=== PATIENT | female | born 1990 | race Caucasian/White ===

== ENCOUNTER → 2016-11-27 | Outpatient (CLI) | payer BC ==
[2016-11-27 16:42] LABS: MEAN CORPUSCULAR HEMOGLOBIN 30.3 PG (26.0-34.0); MEAN PLATELET VOLUME 9.8 FL (6.0-9.5); WHITE BLOOD COUNT 5.58 10^3uL (4.0-11.0)
[2016-11-27 16:44] LABS: MEAN CORPUSCULAR HGB CONC 36.2 g/dL (31.0-37.0)
[2016-11-27 16:48] LABS: ALBUMIN 4.7 g/dL (3.4-5.0); ANION GAP 16.8 MEQ/L (3-15); CALCULATED IONIZED CALCIUM 3.9 mg/dL (3.8-4.6); TOTAL PROTEIN 7.7 g/dL (6.4-8.5)
== END ==
LOC: EDSEX → LAB 16:22
PROVIDERS: ATTEND Internal Medicine Gastroenterology
DX: B18.2 Chronic viral hepatitis C (principal)
CPT/HCPCS: 36415; 80053; 84443; 85027; 85610; 87340

== ENCOUNTER → 2016-12-03 | Outpatient (CLI) | payer BC | LOC: EDSEX → RAD 08:20 → EDUNIT# 08:30 | PROVIDERS: ATTEND Nurse Practitioner | DX: B18.2 Chronic viral hepatitis C (principal) | CPT/HCPCS: 76705 ==

== ENCOUNTER → 2017-01-03 | Outpatient (CLI) | payer BC | LOC: RAD 08:42 → EDSEX 08:42 | PROVIDERS: ATTEND Nurse Practitioner | DX: R93.2 Abnormal findings on diagnostic imaging of liver and biliary tract (principal) | CPT/HCPCS: 74170; Q9967 ==

== ENCOUNTER → 2017-01-22 | Outpatient (CLI) | payer BC ==
[2017-01-22 16:01] LABS: BASOPHILS % (AUTO) 0 % (0-2); EOSINOPHILS # (AUTO) 0.1 10^3uL; EOSINOPHILS % (AUTO) 2 % (0-4); LYMPHOCYTES # (AUTO) 1.5 X10^3; MEAN CORPUSCULAR HEMOGLOBIN 30.7 PG (26.0-34.0); MEAN CORPUSCULAR VOLUME 87 FL (80-100); MEAN PLATELET VOLUME 9.5 FL (6.0-9.5); MONOCYTES # (AUTO) 0.5 X10^3; MONOCYTES % (AUTO) 9 % (3-11); NEUTROPHILS # (AUTO) 3.5 X10^3; NEUTROPHILS % (AUTO) 62 % (51-67); PLATELET COUNT 173 10^3uL (150-450)
[2017-01-22 16:03] LABS: MEAN CORPUSCULAR HGB CONC 35.5 g/dL (31.0-37.0)
[2017-01-22 16:23] LABS: ALBUMIN 4.5 g/dL (3.4-5.0); ANION GAP 13.9 MEQ/L (3-15); CALCULATED IONIZED CALCIUM 4.1 mg/dL (3.8-4.6); TOTAL PROTEIN 7.4 g/dL (6.4-8.5)
[2017-01-29 08:24] LABS: HEP C COPIES ML Not Detected
== END ==
LOC: LAB 15:42
PROVIDERS: ATTEND Internal Medicine Gastroenterology
DX: B18.2 Chronic viral hepatitis C (principal); Z79.899 Other long term (current) drug therapy
CPT/HCPCS: 36415; 80053; 85025; 85610; 87522

== ENCOUNTER → 2017-02-19 | Outpatient (CLI) | payer BC ==
[2017-02-19 16:19] LABS: BASOPHILS % (AUTO) 0 % (0-2); EOSINOPHILS # (AUTO) 0.1 10^3uL; EOSINOPHILS % (AUTO) 2 % (0-4); LYMPHOCYTES # (AUTO) 1.6 X10^3; MEAN CORPUSCULAR HEMOGLOBIN 30.2 PG (26.0-34.0); MEAN CORPUSCULAR VOLUME 84 FL (80-100); MEAN PLATELET VOLUME 9.5 FL (6.0-9.5); MONOCYTES # (AUTO) 0.5 X10^3; MONOCYTES % (AUTO) 9 % (3-11); NEUTROPHILS % (AUTO) 58 % (51-67); PLATELET COUNT 166 10^3uL (150-450); WHITE BLOOD COUNT 5.11 10^3uL (4.0-11.0)
[2017-02-19 16:21] LABS: MEAN CORPUSCULAR HGB CONC 35.9 g/dL (31.0-37.0)
[2017-02-19 16:44] LABS: ALBUMIN 4.4 g/dL (3.4-5.0); ANION GAP 14.8 MEQ/L (3-15); CALCULATED IONIZED CALCIUM 4.2 mg/dL (3.8-4.6); TOTAL PROTEIN 7.1 g/dL (6.4-8.5)
== END ==
LOC: LAB 16:04
PROVIDERS: ATTEND Internal Medicine Gastroenterology
DX: Z51.81 Encounter for therapeutic drug level monitoring (principal); Z79.899 Other long term (current) drug therapy; B18.2 Chronic viral hepatitis C
CPT/HCPCS: 36415; 80053; 85025; 85610

== ENCOUNTER → 2017-03-19 | Outpatient (CLI) | payer BC ==
[2017-03-19 15:35] LABS: BASOPHILS % (AUTO) 0 % (0-2); EOSINOPHILS # (AUTO) 0.1 10^3uL; EOSINOPHILS % (AUTO) 2 % (0-4); LYMPHOCYTES # (AUTO) 1.6 X10^3; MEAN CORPUSCULAR HEMOGLOBIN 30.5 PG (26.0-34.0); MEAN CORPUSCULAR VOLUME 86 FL (80-100); MEAN PLATELET VOLUME 9.2 FL (6.0-9.5); MONOCYTES # (AUTO) 0.5 X10^3; MONOCYTES % (AUTO) 10 % (3-11); NEUTROPHILS # (AUTO) 3.2 X10^3; NEUTROPHILS % (AUTO) 59 % (51-67); PLATELET COUNT 173 10^3uL (150-450); WHITE BLOOD COUNT 5.34 10^3uL (4.0-11.0)
[2017-03-19 15:37] LABS: MEAN CORPUSCULAR HGB CONC 35.7 g/dL (31.0-37.0)
[2017-03-19 16:09] LABS: ALBUMIN 4.5 g/dL (3.4-5.0); ANION GAP 16.2 MEQ/L (3-15); TOTAL PROTEIN 7.5 g/dL (6.4-8.5)
[2017-03-20 11:21] LABS: HEP C COPIES ML Not Detected
== END ==
LOC: LAB 15:09
PROVIDERS: ATTEND Internal Medicine Gastroenterology
DX: B18.2 Chronic viral hepatitis C (principal); Z79.899 Other long term (current) drug therapy
CPT/HCPCS: 36415; 80053; 85025; 85610; 87522